=== PATIENT | female | born 1970 | race Two or more races ===

== ENCOUNTER 2023-02-14 21:39 | Outpatient (CLI) | payer OTHER | END 2023-02-14 21:40 | disposition critical access hospital (66) | LOC: EMS 21:39 | DX: S80.212A Abrasion, left knee, initial encounter (principal); M25.512 Pain in left shoulder; V49.40XA Driver injured in collision with unspecified motor vehicles in traffic accident, initial encounter; Y92.414 Local residential or business street as the place of occurrence of the external cause | CPT/HCPCS: A0425; A0429 ==

== ENCOUNTER 2023-02-14 21:58 | Emergency (ER) | payer OTHER ==
[2023-02-14] MEDS ORDERED: oxyCODONE 5 MG TABLET PO STA (22:08)
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
[2023-02-14 22:14] VITALS: BP 146/100; O2SAT 100
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
== END 2023-02-15 01:01 | disposition home or self-care (01) ==
LOC: ED 21:58
DX: M25.512 Pain in left shoulder (principal); S80.02XA Contusion of left knee, initial encounter; V89.2XXA Person injured in unspecified motor-vehicle accident, traffic, initial encounter; Y93.89 Activity, other specified; Y92.410 Unspecified street and highway as the place of occurrence of the external cause
CPT/HCPCS: 73030; 73562; 99283; 99284; A9270

== ENCOUNTER 2023-06-17 08:00 | Outpatient (CLI) | payer OTHER ==
--- NOTE | 2023-06-17 19:08 | XRAY Report ---
PROCEDURE: Knee 4 View BILAT INDICATIONS: BILAT KNEE PAIN TECHNIQUE: 4 views of the knee(s) were acquired. COMPARISON: None. FINDINGS: Bones: Mild degenerative changes bilaterally. This particularly involves the medial compartment. No d isplaced fracture or dislocation. Soft tissues: Slight lateral tilt of the patella bilaterally. There are small joint effusions. No david picious calcifications. IMPRESSION: Mild degenerative changes, particularly the medial compartments. Mild bilateral patellar tilt. Mild j oint effusions. If there is high concern for further derangement, consider MRI evaluation. Reviewed by: Lexa Ovalle MD on 06/17/2023 7:06 PM [facility] Approved by: Lexa Ovalle MD on 06/17/2023 7:06 PM PST Station ID: [id number]
== END 2023-06-17 23:59 | disposition home or self-care (01) ==
LOC: DI.WOS 08:00
PROVIDERS: ATTEND Orthopaedic Surgery
DX: M17.0 Bilateral primary osteoarthritis of knee (principal); M25.461 Effusion, right knee; M25.462 Effusion, left knee

== ENCOUNTER 2023-06-21 10:03 | Outpatient (CLI) | payer OTHER ==
[2023-06-21 19:07] LABS: BASOPHILS % (AUTO) 0.3 %; EOSINOPHILS # (AUTO) 0.1 10^3/uL (0.0-0.7); EOSINOPHILS % (AUTO) 1.1 %; HCT - HEMATOCRIT 35.5 % (37.0-47.0); LYMPHOCYTES # (AUTO) 1.3 10^3/uL (1.5-3.5); LYMPHOCYTES % (AUTO) 20.7 %; MEAN CORPUSCULAR HEMOGLOBIN 28.8 pg (27.0-31.0); MEAN CORPUSCULAR VOLUME 92.9 fL (81.0-99.0); MEAN PLATELET VOLUME 8.3 fL (7.9-10.8); MONOCYTES # (AUTO) 0.7 10^3/uL (0.0-1.0); MONOCYTES % (AUTO) 11.4 %; NEUTROPHILS # (AUTO) 4.2 10^3/uL (1.5-6.6); NEUTROPHILS % (AUTO) 66.2 %; PLT - PLATELET COUNT 493 10^3/uL (130-450); RED BLOOD COUNT 3.82 10^6/uL (4.20-5.40); RED CELL DISTRIBUTION WIDTH 14.4 % (12.0-15.0); WHITE BLOOD COUNT 6.3 x10^3/uL (4.8-10.8)
[2023-06-21 19:28] LABS: ALKALINE PHOSPHATASE 257 IU/L (42-121); ALT ALANINE AMINOTRANSFERASE 22 IU/L (10-60); AST ASPARTATE AMINOTRANSFERASE 22 IU/L (10-42); BILIRUBIN,TOTAL 0.4 mg/dL (0.2-1.0); BUN - BLOOD UREA NITROGEN 7 mg/dL (6-20); CALCIUM 9.5 mg/dL (8.5-10.3); CARBON DIOXIDE - CO2 26 mmol/L (21-32); CHLORIDE 105 mmol/L (101-111); CHOL/HDL RATIO 2.9 (<4.4); CHOLESTEROL 173 mg/dL; CREATININE 0.6 mg/dL (0.6-1.3); CRP - C-REACTIVE PROTEIN 10.1 mg/dL (<0.5); GFR - MDRD 105 (>89); GLUCOSE 104 mg/dL (74-104); HDL CHOLESTEROL 60 mg/dL; LDL CHOLESTEROL,CALCULATED 93 mg/dL; LDL/HDL RATIO 1.6 (<4.4); POTASSIUM 4.4 mmol/L (3.5-4.5); SODIUM 138 mmol/L (135-145); TOTAL PROTEIN 8.2 g/dL (6.4-8.9); TRIGLYCERIDES 102 mg/dL (48-352); URIC ACID 5.8 mg/dL (2.3-6.6); VLDL CHOLESTEROL 20 mg/dL
[2023-06-21 19:44] LABS: RHEUMATOID FACTOR NEGATIVE (Negative)
[2023-06-21 20:14] LABS: ESTIMATED AVERAGE GLUCOSE 117 mg/dL (70-100); HEMOGLOBIN A1c% 5.7 % (4.27-6.07)
[2023-06-24 18:07] LABS: CYCLIC CITRULLINATED PEP IGG/A 4 units (0-19)
[2023-06-25 18:08] LABS: ANTINUCLEAR ANTIBODIES IFA Negative (.)
== END 2023-06-21 10:04 | disposition home or self-care (01) ==
LOC: LAB.N 10:03
PROVIDERS: ATTEND Nurse Practitioner Family
DX: R22.33 Localized swelling, mass and lump, upper limb, bilateral (principal); Z13.220 Encounter for screening for lipoid disorders; E66.9 Obesity, unspecified; Z13.1 Encounter for screening for diabetes mellitus; Z13.29 Encounter for screening for other suspected endocrine disorder; M79.641 Pain in right hand; M79.642 Pain in left hand
CPT/HCPCS: 36415; 80053; 80061; 83036; 83721; 84443; 84550; 85025; 85651; 86038; 86140; 86200; 86430

== ENCOUNTER 2023-06-28 13:03 | Outpatient (CLI) | payer OTHER ==
--- NOTE | 2023-06-28 21:57 | XRAY Report ---
PROCEDURE: Hand 3+V BL INDICATIONS: Bilateral Hand Pain TECHNIQUE: 3 views of the hand(s) acquired. COMPARISON: None. FINDINGS: Bones: No acute fractures or dislocations. Mild polyarticular background degenerative changes of th e interphalangeal joints of the bilateral hands. No definite osseous erosions or periarticular lucenc ies. No suspicious bony lesions. Soft tissues: No suspicious soft tissue calcifications or masses. Mild soft tissue swelling of the bilateral hand. IMPRESSION: Bilateral hand without acute osseous abnormalities. Mild polyarticular degenerative changes of the bi lateral hand without evidence for osseous erosions or definite periarticular lucencies. Mild soft tis jude swelling bilaterally. Reviewed by: Cole Rodriguez MD on 06/28/2023 9:56 PM PST Approved by: Cole Rodriguez MD on 06/28/2023 9:56 PM [facility] Station ID: [id number]
== END 2023-06-28 13:04 | disposition home or self-care (01) ==
LOC: DI 13:03
PROVIDERS: ATTEND Nurse Practitioner Family
DX: R70.0 Elevated erythrocyte sedimentation rate (principal); R74.8 Abnormal levels of other serum enzymes; R22.33 Localized swelling, mass and lump, upper limb, bilateral; M79.641 Pain in right hand; Z73.6 Limitation of activities due to disability; M19.042 Primary osteoarthritis, left hand; M19.041 Primary osteoarthritis, right hand
CPT/HCPCS: 36415; 82306; 82728; 83540; 83970; 84466; 85025; 86430

== ENCOUNTER 2023-07-28 13:31 | Outpatient (CLI) | payer OTHER ==
--- NOTE | 2023-07-29 08:09 | MRI Report ---
PROCEDURE: Knee RT WO INDICATIONS: BILATERAL KNEE PAIN TECHNIQUE: Noncontrast sagittal PD fast spin echo and T2 fast spin echo with fat saturation, sagittal 3-D gradie nt sequence with fat saturation; coronal T1 spin echo and PD fast spin echo with fat saturation, and axial PD fast spin echo with fat saturation through the knee. COMPARISON: X-ray knees bilateral, 06/17/2023. FINDINGS: Image quality: Excellent. Menisci: Medial meniscal extrusion. There is degenerative tear of the body and posterior horn of the medial meniscus. The lateral meniscus demonstrates normal morphology and internal signal. The menisc al root ligaments appear intact. Cruciate ligaments: The anterior and posterior cruciate ligaments appear intact. Medial structures: The medial collateral ligament appears intact. The semimembranosus tendon insert ions and meniscocapsular junction appear intact. Visualized portions of the pes anserinus tendons ap pear normal. No abnormal bursal fluid. Lateral structures: The lateral collateral ligament, long and short heads of the biceps femoris tend on appear intact. The popliteus tendon appears normal. Iliotibial band appears normal. Anterior structures: The quadriceps and patellar tendons appear intact. There is low-grade patellar tendinitis involving the distal patellar tendon near the tibial tubercle attachment. Patellar alignme nt is normal. No femoral trochlear dysplasia or ventral trochlear prominence. Mild edema in the supr apatellar fat pad (series 5 image 17). Bones and cartilage: No bone marrow contusions or fractures. Mild cartilage fibrillation. Joint space: There is small knee joint fluid. There is a small Aguilera's cyst. Normal appearing synov ial plicae are incidentally noted. IMPRESSION: 1. Medial meniscal extrusion and degenerative tear of the medial meniscus as described. 2. Low-grade patellar tendinitis. 3. Mild edema in the suprapatellar fat pad, suggesting suprapatellar fat impingement. 4. Small knee joint effusion. 5. A small Aguilera's cyst cyst. Reviewed by: Nelida Mcgovern MD on 07/29/2023 8:08 AM PDT Approved by: Nelida Mcgovern MD on 07/29/2023 8:08 AM PDT Station ID: [id number]
--- NOTE | 2023-07-29 08:16 | MRI Report ---
PROCEDURE: Knee LT WO INDICATIONS: BILATERAL KNEE PAIN TECHNIQUE: Noncontrast sagittal PD fast spin echo and T2 fast spin echo with fat saturation, sagittal 3-D gradie nt sequence with fat saturation; coronal T1 spin echo and PD fast spin echo with fat saturation, and axial PD fast spin echo with fat saturation through the knee. COMPARISON: X-ray knees bilateral, 06/17/2023. FINDINGS: Image quality: Excellent. Menisci: There is horizontal tear involving the posterior horn and body of the medial meniscus. There is intrasubstance degeneration in the posterior horn the lateral meniscus demonstrates. The menisca l root ligaments appear intact. Cruciate ligaments: The anterior and posterior cruciate ligaments appear intact. Medial structures: The medial collateral ligament appears intact. The semimembranosus tendon insert ions and meniscocapsular junction appear intact. Visualized portions of the pes anserinus tendons ap pear normal. No abnormal bursal fluid. Lateral structures: The lateral collateral ligament, long and short heads of the biceps femoris tend on appear intact. The popliteus tendon appears normal. Iliotibial band appears normal. Anterior structures: The quadriceps and patellar tendons appear intact. Patellar alignment is ole l. No femoral trochlear dysplasia or ventral trochlear prominence. There is edema in the medial aspe ct of the suprapatellar fat pad. Bones and cartilage: No bone marrow contusions or fractures. Mild tricompartmental cartilage thinnin g and fibrillation. Joint space: There is moderate knee joint fluid. There is a small Aguilera's cyst. Normal appearing sy novial plicae are incidentally noted. IMPRESSION: 1. Horizontal tear of the body and posterior horn of the medial meniscus. 2. Intrasubstance degeneration of the posterior horn the lateral meniscus. 3. Edema in the medial aspect of the suprapatellar fat pad suggesting a hepatic impingement. 4. Mild tricompartmental cartilage thinning and fibrillation. 5. Moderate knee joint effusion. 6. Small Aguilera's cyst cyst. Reviewed by: Nelida Mcgovern MD on 07/29/2023 8:15 AM PDT Approved by: Nelida Mcgovern MD on 07/29/2023 8:15 AM PDT Station ID: [id number]
== END 2023-07-28 13:32 | disposition home or self-care (01) ==
LOC: DI 13:31
PROVIDERS: ATTEND Orthopaedic Surgery
DX: S83.241A Other tear of medial meniscus, current injury, right knee, initial encounter (principal); M76.51 Patellar tendinitis, right knee; M25.461 Effusion, right knee; M71.21 Synovial cyst of popliteal space [Baker], right knee; S83.242A Other tear of medial meniscus, current injury, left knee, initial encounter; M23.352 Other meniscus derangements, posterior horn of lateral meniscus, left knee; M17.12 Unilateral primary osteoarthritis, left knee; M25.462 Effusion, left knee; M71.22 Synovial cyst of popliteal space [Baker], left knee

== ENCOUNTER 2023-12-02 09:02 | Outpatient (CLI) | payer OTHER ==
--- NOTE | 2023-12-03 08:08 | Mammography Report ---
BILATERAL DIGITAL SCREENING MAMMOGRAM 3D/2D: 12/02/2023 CLINICAL: Baseline exam. Routine screening. No prior exams were available for comparison. There are scattered areas of fibroglandular density in both breasts (category b / 25%-50% glandular t issue). No significant masses, calcifications, or other findings are seen in either breast. IMPRESSION: NEGATIVE There is no mammographic evidence of malignancy. A 1 year screening mammogram is recommended. Based on the Tyrer Cuzick model (a risk assessment model) the patient's lifetime risk is 6.8% and her 10 year risk is 1.8%. According to the ACR, ACS, and NCCN guidelines, an annual breast MRI exam vanna g with mammogram is recommended if the patient's lifetime risk is 20% or greater. This exam was interpreted at Station ID: [id number]. NOTE: For mammograms, a report in lay terms will be sent to the patient. Approximately 15% of breast malignancies will not be visualized mammographically. In the management of a palpable breast mass, a negative mammogram must not discourage biopsy of a clinically suspicious lesion. Electronically Signed By: Danette Hong M.D., Ph.D. eb/bárbara:12/02/2023 16:35:47 letter sent: No_Letter ACR BI-RADS Category 1: Negative 3341F PARENCHYMAL PATTERN: (A) - The breast(s) demonstrate(s) scattered fibroglandular densities. BI-RADS CATEGORY: (1) - 1 RECOMMENDATION: (ANNUAL) - Recommend routine annual screening mammography. [id number] 1 year screening LATERALITY: (B)
== END 2023-12-02 09:03 | disposition home or self-care (01) ==
LOC: DI.N 09:02
DX: Z12.31 Encounter for screening mammogram for malignant neoplasm of breast (principal); R92.323 Mammographic fibroglandular density, bilateral breasts

== ENCOUNTER 2023-12-22 17:32 | Outpatient (CLI) | payer OTHER ==
[2023-12-22 17:44] LABS: BASOPHILS % (AUTO) 0.7 %; EOSINOPHILS # (AUTO) 0.1 10^3/uL (0.0-0.7); HCT - HEMATOCRIT 38.7 % (37.0-47.0); HGB - HEMOGLOBIN 12.6 g/dL (12.0-16.0); LYMPHOCYTES # (AUTO) 1.8 10^3/uL (1.5-3.5); LYMPHOCYTES % (AUTO) 39.8 %; MEAN CORPUSCULAR HEMOGLOBIN 30.1 pg (27.0-31.0); MEAN CORPUSCULAR HGB CONC 32.6 g/dL (32.0-36.0); MEAN CORPUSCULAR VOLUME 92.6 fL (81.0-99.0); MEAN PLATELET VOLUME 8.4 fL (7.9-10.8); MONOCYTES # (AUTO) 0.4 10^3/uL (0.0-1.0); MONOCYTES % (AUTO) 9.5 %; NEUTROPHILS # (AUTO) 2.2 10^3/uL (1.5-6.6); NEUTROPHILS % (AUTO) 47.8 %; PLT - PLATELET COUNT 276 10^3/uL (130-450); RED BLOOD COUNT 4.18 10^6/uL (4.20-5.40); RED CELL DISTRIBUTION WIDTH 17.3 % (12.0-15.0); WHITE BLOOD COUNT 4.6 x10^3/uL (4.8-10.8)
[2023-12-22 17:57] LABS: ALBUMIN 4.1 g/dL (3.2-5.5); ALBUMIN/GLOBULIN RATIO 1.5 (1.0-2.2); ALKALINE PHOSPHATASE 126 IU/L (42-121); ALT ALANINE AMINOTRANSFERASE 45 IU/L (10-60); AST ASPARTATE AMINOTRANSFERASE 37 IU/L (10-42); BILIRUBIN,TOTAL 0.5 mg/dL (0.2-1.0); BUN - BLOOD UREA NITROGEN 9 mg/dL (6-20); CARBON DIOXIDE - CO2 30 mmol/L (21-32); CHLORIDE 105 mmol/L (101-111); CREATININE 0.8 mg/dL (0.6-1.3); CRP - C-REACTIVE PROTEIN < 0.5 mg/dL (<0.5); GFR - MDRD 75 (>89); GLUCOSE 107 mg/dL (74-104); POTASSIUM 3.7 mmol/L (3.5-4.5); SODIUM 139 mmol/L (135-145); TOTAL PROTEIN 6.9 g/dL (6.4-8.9)
== END 2023-12-22 17:33 | disposition home or self-care (01) ==
LOC: LAB 17:32
PROVIDERS: ATTEND Internal Medicine Rheumatology
DX: M19.90 Unspecified osteoarthritis, unspecified site (principal); D84.9 Immunodeficiency, unspecified; E61.1 Iron deficiency; R74.8 Abnormal levels of other serum enzymes; R25.2 Cramp and spasm; R20.0 Anesthesia of skin; R74.01 Elevation of levels of liver transaminase levels
CPT/HCPCS: 36415; 80053; 85025; 85651; 86140

== ENCOUNTER 2024-01-08 07:25 | Outpatient (CLI) | payer OTHER ==
[2024-01-08 12:25] LABS: ALBUMIN 4.4 g/dL (3.2-5.5); BILIRUBIN,TOTAL 0.5 mg/dL (0.2-1.0); CALCIUM 9.3 mg/dL (8.5-10.3); CREATININE 0.8 mg/dL (0.6-1.3); POTASSIUM 4.1 mmol/L (3.5-4.5); TOTAL PROTEIN 6.6 g/dL (6.4-8.9)
[2024-01-08 12:39] LABS: ESTIMATED AVERAGE GLUCOSE 123 mg/dL (70-100); HEMOGLOBIN A1c% 5.9 % (4.27-6.07)
== END 2024-01-08 07:26 | disposition home or self-care (01) ==
LOC: LAB.N 07:25
PROVIDERS: ATTEND Internal Medicine Endocrinology, Diabetes & Metabolism
DX: R73.03 Prediabetes (principal); E55.9 Vitamin D deficiency, unspecified
CPT/HCPCS: 36415; 80053; 82306; 83036

== ENCOUNTER 2024-01-20 07:03 | Day surgery (SDC) | payer OTHER ==
[2024-01-20] MEDS: LACTATED RINGERS 1,000 ML IV ONE ×2 (07:06→10:31)
[2024-01-20 07:23] LABS: HCG UR QUAL NEGATIVE
--- NOTE | 2024-01-20 08:43 | ANESTHESIA ---
Pre-Anesthesia VS, & Labs - Diagnosis screening - Procedure colonoscopy Vital Signs: Temp Pulse Resp BP Pulse Ox O2 Flow Rate 36.2 C L 77 12 123/71 98 01/20/24 07:18 01/20/24 07:18 01/20/24 07:18 01/20/24 07:18 01/20/24 07:18 Height: 4 ft 11 in Weight (kg): 75.4 kg Body Mass Index: 33.5 BMI Classification: Obese - NPO >8 hours - Is Patient ?: No Home Medications and Allergies Home Medications: Ambulatory Orders Prednisone [Travis] 5 mg PO DAILY 01/19/24 Prednisone [Travis] 5 mg PO DAILY 01/19/24 Allergies/Adverse Reactions: Allergies Allergy/AdvReac Type Severity Reaction Status Date / Time No Known Drug Allergies Allergy Verified 01/20/24 07:37 Anes History & Medical History - Anesthetic History Anesthesia Complications: reports: No previous complications Family history of Anesthesia Complications: Denies Family history of Malignant Hyperthermia: Denies - Medical History Cardiovascular: reports: None Pulmonary: reports: None Gastrointestinal: reports: None Urinary: reports: None Neuro: reports: None Musculoskeletal: reports: Osteoarthritis Endocrine/Autoimmune: reports: None Blood Disorders: reports: None Skin: reports: None Smoking Status: Never smoker Psychosocial: reports: No issues indicated History of Cancer?: No - Surgical History Gynecologic: reports: Tubal ligation Exam General: Alert, Oriented x3, Cooperative Dental: WNL Mouth Openin Fingerbreadth Neck Mobility: Normal Mallampati classification: II Thyromental Distance: 4-6 cm Respiratory: Lungs clear Cardiovascular: Regular rate Plan Anesthesia Type: General, Total IV Consent for Procedure(s) Verified and Reviewed: Yes Code Status: Attempt Resuscitation ASA classification: 2-Mild systemic disease Is this case an emergency?: No
[2024-01-20] MEDS ORDERED: LIDOCAINE-MPF 2% 5 ML VIAL ONE (09:29)
[2024-01-20] MEDS ORDERED: PROPOFOL 500 MG/50 ML 500 MG/50 ML VIAL ONE (09:29)
[2024-01-20 11:06] VITALS: BP 103/74; O2SAT 99
--- NOTE | 2024-01-20 14:18 | ANESTHESIA POST OP EVALUATION ---
Anesthesia Post Eval - Post Anesthesia Eval Vitals: Last Vital Signs Temp 0 C L 01/20/24 10:38 Pulse 75 01/20/24 10:58 Resp 18 01/20/24 10:58 BP 103/74 01/20/24 10:58 Pulse Ox 99 01/20/24 10:58 O2 Flow Rate CV Function Including HR & BP: Stable Pain Control: Satisfactory Nausea & Vomiting: Negative Mental Status: Baseline Respiratory Status: Airway Patent Hydration Status: Satisfactory Anesthesia Complications: None
== END 2024-01-20 07:04 | disposition home or self-care (01) ==
LOC: SDS 07:03
PROVIDERS: ATTEND Surgery
DX: Z12.11 Encounter for screening for malignant neoplasm of colon (principal); E66.9 Obesity, unspecified; Z68.33 Body mass index [BMI] 33.0-33.9, adult
CPT/HCPCS: 45378; 81025; J7120